=== PATIENT | female | born 1995 | race American Indian/Alaskan Native ===

== ENCOUNTER 2019-03-17 23:49 | Emergency (ER) | payer MEDICAID, OTHER ==
[2019-03-17 23:59] VITALS: BP 114/65
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
== END 2019-03-18 00:20 | disposition left against medical advice (07) ==
LOC: ED 23:49
DX: S00.83XA Contusion of other part of head, initial encounter (principal); S00.03XA Contusion of scalp, initial encounter; S10.93XA Contusion of unspecified part of neck, initial encounter; S00.12XA Contusion of left eyelid and periocular area, initial encounter; G44.319 Acute post-traumatic headache, not intractable; Y04.0XXA Assault by unarmed brawl or fight, initial encounter; Y93.89 Activity, other specified; Y92.89 Other specified places as the place of occurrence of the external cause; Y99.8 Other external cause status
CPT/HCPCS: 99282

== ENCOUNTER 2019-03-20 23:51 | Emergency (ER) | payer MEDICAID, OTHER ==
[2019-03-21] MEDS ORDERED: IBUPROFEN PO ONE (01:46)
[2019-03-21] MEDS ORDERED: FIORICET PO ONE (01:47)
[2019-03-21 03:40] LABS: HCG Qualitative,Urine Negative (Negative)
[2019-03-21 03:41] LABS: Bacteria,Urine 1+ /HPF (Negative); Bilirubin,Urine NEG (Negative); Blood,Urine NEG (Negative); Color,Urine Yellow (Yellow); Mucus,Urine 1+ /HPF; Protein,Urine <15 mg/dL mg/dL (Negative); Urobilinogen,Urine < 2.0 mg/dL (<2.0)
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
[2019-03-21 05:00] VITALS: BP 116/65
== END 2019-03-21 04:56 | disposition home or self-care (01) ==
LOC: ED 23:51
DX: S00.212A Abrasion of left eyelid and periocular area, initial encounter (principal); G44.319 Acute post-traumatic headache, not intractable; Z79.1 Long term (current) use of non-steroidal anti-inflammatories (NSAID); Y04.2XXA Assault by strike against or bumped into by another person, initial encounter; Y93.89 Activity, other specified; Y92.488 Other paved roadways as the place of occurrence of the external cause; Y99.8 Other external cause status
CPT/HCPCS: 70450; 70486; 81001; 81025; 99284

== ENCOUNTER 2019-03-29 23:53 | Emergency (ER) | payer OTHER ==
[2019-03-30 00:30] VITALS: BP 112/25
[2019-03-30 00:37] LABS: Basophils # (Auto) 0.1 K/mm3 (0.0-0.1); Basophils % (Auto) 0.6 % (0.0-1.8); Eosinophils # (Auto) 0.2 K/mm3 (0.0-0.4); Eosinophils % (Auto) 1.5 % (0.0-4.3); Hematocrit 40.7 % (30.3-42.9); Hemoglobin 14.1 gm/dl (10.1-14.3); Lymphocytes % (Auto) 36.2 % (13.4-35.0); Mean Corpuscular HGB Conc 35 % (30-34); Mean Corpuscular Volume 81 fl (79-97); Monocytes % (Auto) 9.2 % (0.0-7.3); Platelet Count 264 K/mm3 (140-440); Red Blood Count 5.03 M/mm3 (3.65-5.03); Red Cell Distribution Width 13.6 % (13.2-15.2)
[2019-03-30 01:00] LABS: Bilirubin,Urine NEG (Negative); Blood,Urine NEG (Negative); Color,Urine Yellow (Yellow); Mucus,Urine 1+ /HPF; Protein,Urine <15 mg/dL mg/dL (Negative); Urobilinogen,Urine < 2.0 mg/dL (<2.0)
[2019-03-30 01:03] LABS: Alanine Aminotransferase 11 units/L (7-56); Albumin 4.1 g/dL (3.9-5); BUN/Creatinine Ratio 24; Blood Urea Nitrogen 19 mg/dL (7-17); Calcium 8.7 mg/dL (8.4-10.2); Hemolysis Index 5
== END 2019-03-30 04:40 | disposition left against medical advice (07) ==
LOC: ED 23:53
DX: R11.2 Nausea with vomiting, unspecified (principal); Z53.21 Procedure and treatment not carried out due to patient leaving prior to being seen by health care provider
CPT/HCPCS: 36415; 80053; 81001; 83690; 84703; 85025

== ENCOUNTER 2022-02-23 15:38 | Emergency (ER) | payer OTHER ==
[2022-02-23 17:16] VITALS: BP 111/69
[2022-02-23 18:22] LABS: Basophils % (Auto) 0.3 % (0.0-1.8); Eosinophils % (Auto) 0.2 % (0.0-4.3); Hematocrit 41.6 % (30.3-42.9); Hemoglobin 14.7 gm/dl (10.1-14.3); Lymphocytes # (Auto) 1.3 K/mm3 (1.2-5.4); Lymphocytes % (Auto) 9.8 % (13.4-35.0); Mean Corpuscular HGB Conc 35 % (30-34); Mean Corpuscular Volume 78 fl (79-97); Monocytes # (Auto) 0.9 K/mm3 (0.0-0.8); Monocytes % (Auto) 6.7 % (0.0-7.3); Platelet Count 285 K/mm3 (140-440); Red Blood Count 5.32 M/mm3 (3.65-5.03)
[2022-02-23 18:44] LABS: Blood Urea Nitrogen 11 mg/dL (7-17); Calcium 10.3 mg/dL (8.4-10.2); Hemolysis Index 1
[2022-02-23 18:55] LABS: BUN/Creatinine Ratio 16
[2022-02-23 23:42] LABS: Bacteria,Urine 1+ /HPF (Negative); Bilirubin,Urine NEG (Negative); Blood,Urine NEG (Negative); Color,Urine Amber (Yellow); Mucus,Urine 3+ /HPF; WBC,Urine < 1.0 /HPF (0.0-6.0)
--- NOTE | 2022-02-24 00:02 | Ultrasound Report ---
US OB <= 14 weeks fetus INDICATION / CLINICAL INFORMATION: Vaginal bleeding pain beta hCG 67,677 COMPARISON: None available. TECHNIQUE: Using a transcutaneous probe, multiple grayscale, color Doppler, and spectral Doppler imag es of the uterus and fetus were captured and stored. FINDINGS: Single intrauterine gestational sac is present with mean crown-rump length of 4.9 mm which correspond s to an estimated gestational age of 6 weeks 2 days. EDC 10/17/2022. The uterus measures 8.5 x 4.4 x 6. 0 cm. The clinical estimated gestational age based on LMP of 01/26/2022 is 4 weeks 0 days. Within the gestational sac, normal yolk sac and pole are present. heart rate is 125 bpm. Left and right ovary are not identified secondary to bowel gas. IMPRESSION: 1. Single living intrauterine gestation with estimated gestational age of 6 weeks 2 days. Signer Name: Mert Agudelo II, MD Signed: 02/23/2022 11:57 PM Workstation Name: [id number]
[2022-02-24] MEDS ORDERED: ONDANSETRON 4 MG ODT TAB PO STA (00:22)
[2022-02-24] MEDS: PYRIDOXINE 50 MG TAB PO SCH ×2 (01:10→01:52)
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
== END 2022-02-24 02:09 | disposition home or self-care (01) ==
LOC: ED 15:38
DX: O20.9 Hemorrhage in early pregnancy, unspecified (principal); O21.9 Vomiting of pregnancy, unspecified; Z3A.01 Less than 8 weeks gestation of pregnancy; Z98.890 Other specified postprocedural states
CPT/HCPCS: 36415; 76801; 80048; 81001; 84702; 85025; 99284; J3490; Q0162

== ENCOUNTER 2022-02-24 14:12 | Emergency (ER) | payer OTHER ==
[2022-02-24 14:35] VITALS: BP 128/78
--- NOTE | 2022-02-24 17:52 | Emergency Department Report ---
ED HPI - General Chief complaint: Abdominal Pain Stated complaint: NAUSEA/VOMITING/CONSTIPATION Source: EMS Mode of arrival: Ambulatory Limitations: No Limitations - History of Present Illness Initial comments: 26-year-old female presents to the ED with complaint of pain all over her body. Patient was previously discharged this a.m. with for nausea and vomiting. Juanita ent has a history of schizo bipolar schizophrenic. She states that she was taking Zyprexa. Unknown dosage amount. Patient states last Zyprexa was taking 1 week ago. Patient states that she returned to the ED because she wanted to know why she her body "was not feeling right". Patient did not have any specific complaints at present time. Patient denies any abdominal pain, vaginal discharge or bleeding, suicidal ideation or homicidal ideation. Patient is alert and oriented x3. No acute distress noted. No ill appearance noted. - Related Data Previous Rx's Medication Instructions Recorded Last Taken Type Cyclobenzaprine [Flexeril] 10 mg PO Q8H PRN #15 tablet 03/21/19 Unknown Rx Ibuprofen [Motrin] 600 mg PO Q8H PRN #20 tablet 03/21/19 Unknown Rx Doxylamine Succinate/Vit B6 1 each PO BID #30 02/24/22 Unknown Rx [Diclegis Dr 10-10 mg Tablet] Doxylamine Succinate/Vit B6 1 each PO BID 15 Days #30 tab 02/24/22 Unknown Rx [Diclegis Dr 10-10 mg Tablet] Allergies Allergy/AdvReac Type Severity Reaction Status Date / Time No Known Allergies Allergy Verified 10/17/15 21:26 ED Review of Systems ROS: Stated complaint: NAUSEA/VOMITING/CONSTIPATION Other details as noted in HPI Constitutional: denies: chills, fever Eyes: denies: eye pain, eye discharge, vision change ENT: denies: ear pain, throat pain Respiratory: denies: cough, shortness of breath, wheezing Cardiovascular: denies: chest pain, palpitations Endocrine: no symptoms reported Gastrointestinal: denies: abdominal pain, nausea, diarrhea Genitourinary: denies: urgency, dysuria, discharge Musculoskeletal: denies: back pain, joint swelling, arthralgia Skin: denies: rash, lesions Neurological: denies: headache, weakness, paresthesias Psychiatric: denies: anxiety, depression Hematological/Lymphatic: denies: easy bleeding, easy bruising ED Past Medical Hx - Past Medical History Previous Medical History?: Yes Hx Hypertension: No Hx Diabetes: No Hx Deep Vein Thrombosis: No Hx Renal Disease: No Hx Sickle Cell Disease: No Hx Seizures: No Hx Asthma: No Hx HIV: No - Surgical History Past Surgical History?: Yes Additional Surgical History: - Social History Smoking Status: Current Every Day Smoker Substance Use Type: None - Medications Home Medications: Home Medications Medication Instructions Recorded Confirmed Last Taken Type Cyclobenzaprine [Flexeril] 10 mg PO Q8H PRN #15 tablet 03/21/19 Unknown Rx Ibuprofen [Motrin] 600 mg PO Q8H PRN #20 tablet 03/21/19 Unknown Rx Doxylamine Succinate/Vit B6 1 each PO BID #30 02/24/22 Unknown Rx [Diclegis Dr 10-10 mg Tablet] Doxylamine Succinate/Vit B6 1 each PO BID 15 Days #30 tab 02/24/22 Unknown Rx [Diclegis Dr 10-10 mg Tablet] ED Physical Exam - General Limitations: No Limitations General appearance: alert, in no apparent distress - Head Head exam: Present: atraumatic, normocephalic - Eye Eye exam: Present: normal appearance - ENT ENT exam: Present: mucous membranes moist - Neck Neck exam: Present: normal inspection - Respiratory Respiratory exam: Present: normal lung sounds bilaterally. Absent: respiratory distress - Cardiovascular Cardiovascular Exam: Present: regular rate, normal rhythm. Absent: systolic murmur, diastolic murmur, rubs, gallop - GI/Abdominal GI/Abdominal exam: Present: soft, normal bowel sounds - Extremities Exam Extremities exam: Present: normal inspection - Back Exam Back exam: Present: normal inspection - Neurological Exam Neurological exam: Present: alert, oriented X3 - Psychiatric Psychiatric exam: Present: normal affect, normal mood - Skin Skin exam: Present: warm, dry, intact, normal color. Absent: rash ED Course Vital Signs 02/24/22 14:24 Temperature 98.9 F Pulse Rate 90 Respiratory 20 Rate Blood Pressure 128/78 O2 Sat by Pulse 100 Oximetry ED Medical Decision Making - Medical Decision Making 26-year-old female presents to the ED with complaint of pain all over her body. Patient was previously discharged this a.m. with for nausea and vomiting. Patient has a history of schizo bipolar schizophrenic. She states that she was taking Zyprexa. Unknown dosage amount. Patient states last Zyprexa was taking 1 week ago. Patient states that she returned to the ED because she wanted to know why she her body "was not feeling right". Patient did not have any specific complaints at present time. Patient denies any abdominal pain, vaginal discharge or bleeding, suicidal ideation or homicidal ideation. Patient is alert and oriented x3. No acute distress noted. No ill appearance noted. Physical examination is unremarkable. Discussed with patient all lab results from earlier visit in detail with patient. Labs were drawn within 24 hours of the visit. Patient states that she had lost her prescription for the nausea. Discussed with patient to only take Tylenol for pain. Patient had ultrasound showed viable 6 days and 3 weeks. Rechecked the patient is resting quietly quietly and comfortable and feeling better. I discussed the results of diagnostic study, my clinical impression and the plan for further treatment with the patient. Patient agrees with plan and discharge at this present time. All question addressed. I have given the patient instruction regarding a diagnosis ,expectation ,follow- up and return precaution. I explained to the patient that emergent condition may arise and to return to the ED for new worsen and any new persisting condition. I have explained the importance of following up with the primary care physician or referral physician listed below has instructed. The patient verbalized understanding of discharge instruction. Critical care attestation.: If time is entered above; I have spent that time in minutes in the direct care of this critically ill patient, excluding procedure time. ED Disposition Clinical Impression: Nausea and vomiting, Hyperemesis Qualifiers: Weeks of gestation: less than 8 weeks Qualified Code(s): Z3A.01 - Less than 8 weeks gestation of Disposition: 01 HOME / SELF CARE / HOMELESS Is pt being admited?: No Does the pt Need Aspirin: No Condition: Stable Instructions: Hyperemesis Gravidarum, Abdominal Pain (ED) Additional Instructions: Take medication as prescribed Prescriptions: Doxylamine Succinate/Vit B6 [Saniya Azul 10-10 mg Tablet] 1 each PO BID 15 Days #30 tab Referrals: [facility] [Provider Group] - 3-5 Days Forms: Work/School Release Form(ED) Time of Disposition: 17:52
== END 2022-02-24 18:23 | disposition home or self-care (01) ==
LOC: ED 14:12
DX: O21.9 Vomiting of pregnancy, unspecified (principal); F17.200 Nicotine dependence, unspecified, uncomplicated; Z79.899 Other long term (current) drug therapy
CPT/HCPCS: 99283

== ENCOUNTER 2022-02-24 20:29 | Emergency (ER) | payer OTHER | END 2022-02-24 20:35 | disposition left against medical advice (07) | LOC: ED 20:29 | DX: O21.8 Other vomiting complicating pregnancy (principal); Z3A.01 Less than 8 weeks gestation of pregnancy; Z53.21 Procedure and treatment not carried out due to patient leaving prior to being seen by health care provider ==

== ENCOUNTER 2022-02-25 16:02 | Emergency (ER) | payer OTHER ==
[2022-02-25 16:07] VITALS: BP 132/70
== END 2022-02-25 22:10 | disposition left against medical advice (07) ==
LOC: ED 16:02
DX: R11.10 Vomiting, unspecified (principal); Z53.21 Procedure and treatment not carried out due to patient leaving prior to being seen by health care provider

== ENCOUNTER 2022-02-27 07:43 | Inpatient (IN) | payer OTHER ==
[2022-02-27] MEDS ORDERED: ONDANSETRON 4 MG/2 ML INJ IV ONE (08:02)
[2022-02-27] MEDS ORDERED: SODIUM CHLORIDE 0.9% 1000 ML 1,000 ML IV ONE ×2 (08:02→12:54)
[2022-02-27] MEDS ORDERED: MORPHINE 2 MG/1 ML INJ IM ONE (08:33)
[2022-02-27 09:16] LABS: BUN/Creatinine Ratio 25; Blood Urea Nitrogen 28 mg/dL (7-17); Hemolysis Index 15
[2022-02-27] MEDS ORDERED: POTASSIUM CHLORIDE ER 20 MEQ TAB PO ONE (09:18)
[2022-02-27 09:25] LABS: Hematocrit 43.2 % (30.3-42.9); Mean Corpuscular HGB Conc 35 % (30-34); Mean Corpuscular Volume 78 fl (79-97); Platelet Count 304 K/mm3 (140-440); Red Blood Count 5.54 M/mm3 (3.65-5.03); Red Cell Distribution Width 13.8 % (13.2-15.2)
[2022-02-27] MEDS ORDERED: POTASSIUM CHLORIDE 10 MEQ 10 MEQ/100 ML BAG IV SCH (10:00)
[2022-02-27 10:06] LABS: Basophils % (Manual) 0 % (0.0-1.8); Eosinophils % (Manual) 0 % (0.0-4.3); Platelet Estimate Consistent w Auto; Total Cells Counted 100
--- NOTE | 2022-02-27 10:31 | Ultrasound Report ---
US OB <= 14 weeks fetus INDICATION / CLINICAL INFORMATION: Abdominal Pain. TECHNIQUE: Transabdominal. COMPARISON: None available. FINDINGS: UTERUS: Appears within normal limits. GESTATIONAL SAC: Well-defined oval shape and intrauterine in location. YOLK SAC: No significant abnormality. EMBRYO/FETUS: - Geddes-Rump Length = 13.6 mm. - Heart Rate, beats per minute (if present) = 134 beats per minute ADNEXA: No significant abnormality. FREE FLUID: None. ADDITIONAL FINDINGS: Small crescent-shaped subchorionic hemorrhage.. IMPRESSION: 1. Single, living intrauterine with estimated sonographic age of 7 weeks 5 days. 2. Small subchorionic hemorrhage. Signer Name: Luis Enrique Forde MD Signed: 02/27/2022 10:26 AM Workstation Name: [id number]
[2022-02-27 12:32] LABS: Bilirubin,Urine NEG (Negative); Blood,Urine LG (Negative); Color,Urine Yellow (Yellow); Urobilinogen,Urine < 2.0 mg/dL (<2.0)
[2022-02-27 12:33] LABS: RBC,Urine < 1.0 /HPF (0.0-6.0); WBC,Urine < 1.0 /HPF (0.0-6.0)
[2022-02-27 12:34] LABS: HCG Qualitative,Urine Positive (Negative)
[2022-02-27 12:35] LABS: Bacteria,Urine 1+ /HPF (Negative); Hyaline Casts,Urine 3 /LPF; Mucus,Urine FEW /HPF
--- NOTE | 2022-02-27 12:52 | Emergency Department Report ---
ED General Adult HPI - General Chief complaint: Abdominal Pain Stated complaint: ABD PAIN/ 6 WKS PREG Time Seen by Provider: 02/27/22 08:01 Source: patient, EMS Mode of arrival: Stretcher Limitations: No Limitations - History of Present Illness Initial comments: ADBOMINAL PAIN, VAGINAL BLEEDING X'S 4-5 DAYS -: Gradual, days(s) Severity scale (0 -10): 6 Consistency: intermittent Improves with: none Treatments Prior to Arrival: none - Related Data Previous Rx's Medication Instructions Recorded Last Taken Type Cyclobenzaprine [Flexeril] 10 mg PO Q8H PRN #15 tablet 03/21/19 Unknown Rx Ibuprofen [Motrin] 600 mg PO Q8H PRN #20 tablet 03/21/19 Unknown Rx Doxylamine Succinate/Vit B6 1 each PO BID #30 02/24/22 Unknown Rx [Diclegis Dr 10-10 mg Tablet] Doxylamine Succinate/Vit B6 1 each PO BID 15 Days #30 tab 02/24/22 Unknown Rx [Diclegis Dr 10-10 mg Tablet] Allergies Allergy/AdvReac Type Severity Reaction Status Date / Time No Known Allergies Allergy Verified 02/27/22 07:53 ED Review of Systems ROS: Stated complaint: ABD PAIN/ 6 WKS PREG Other details as noted in HPI Constitutional: denies: chills, fever Eyes: denies: eye pain, eye discharge, vision change ENT: denies: ear pain, throat pain Respiratory: denies: cough, shortness of breath, wheezing Cardiovascular: denies: chest pain, palpitations Endocrine: no symptoms reported Gastrointestinal: denies: abdominal pain, nausea, diarrhea Genitourinary: denies: urgency, dysuria, discharge Musculoskeletal: denies: back pain, joint swelling, arthralgia Skin: denies: rash, lesions Neurological: denies: headache, weakness, paresthesias Psychiatric: denies: anxiety, depression Hematological/Lymphatic: denies: easy bleeding, easy bruising ED Past Medical Hx - Past Medical History Hx Hypertension: No Hx Diabetes: No Hx Deep Vein Thrombosis: No Hx Renal Disease: No Hx Sickle Cell Disease: No Hx Seizures: No Hx Asthma: No Hx HIV: No - Surgical History Additional Surgical History: - Social History Smoking Status: Current Every Day Smoker Substance Use Type: None - Medications Home Medications: Home Medications Medication Instructions Recorded Confirmed Last Taken Type Cyclobenzaprine [Flexeril] 10 mg PO Q8H PRN #15 tablet 03/21/19 Unknown Rx Ibuprofen [Motrin] 600 mg PO Q8H PRN #20 tablet 03/21/19 Unknown Rx Doxylamine Succinate/Vit B6 1 each PO BID #30 02/24/22 Unknown Rx [Diclegis Dr 10-10 mg Tablet] Doxylamine Succinate/Vit B6 1 each PO BID 15 Days #30 tab 02/24/22 Unknown Rx [Diclegis Dr 10-10 mg Tablet] ED Physical Exam - General Limitations: No Limitations General appearance: alert, in distress, other (actively vomiting) - Head Head exam: Present: atraumatic, normocephalic - Eye Eye exam: Present: normal appearance - ENT ENT exam: Present: mucous membranes moist - Neck Neck exam: Present: normal inspection - Respiratory Respiratory exam: Present: normal lung sounds bilaterally. Absent: respiratory distress - Cardiovascular Cardiovascular Exam: Present: regular rate, tachycardia. Absent: systolic murmur, diastolic murmur, rubs, gallop - GI/Abdominal GI/Abdominal exam: Present: soft, normal bowel sounds - Extremities Exam Extremities exam: Present: normal inspection - Back Exam Back exam: Present: normal inspection - Neurological Exam Neurological exam: Present: alert, oriented X3 - Psychiatric Psychiatric exam: Present: normal affect, normal mood - Skin Skin exam: Present: warm, dry, intact, normal color. Absent: rash ED Course Vital Signs 02/27/22 02/27/22 07:49 09:57 Temperature 98.4 F 98.9 F Pulse Rate 130 H 92 H Respiratory 16 20 Rate Blood Pressure 150/90 135/82 [Left] O2 Sat by Pulse 97 100 Oximetry ED Medical Decision Making - Lab Data Result diagrams: 02/27/22 08:34 02/27/22 08:34 - Radiology Data Radiology results: report reviewed, image reviewed - Medical Decision Making work up showed hyponatremia and hypokalemia , ketones noted no acidosis or gap , fluids given nausea meds spoke with dr Herrera, will admit and consult medicine Critical care attestation.: If time is entered above; I have spent that time in minutes in the direct care of this critically ill patient, excluding procedure time. ED Disposition Clinical Impression: Hyperemesis, Hyponatremia, Hypokalemia, Hyperemesis gravidarum Disposition: ADMITTED INPATIENT Is pt being admited?: Yes Does the pt Need Aspirin: No Condition: Fair Instructions: Abdominal Pain (ED) Referrals: [facility],MD [Primary Care Provider] - 3-5 Days
[2022-02-27] MEDS ORDERED: THIAMINE 100 MG, FOLIC ACID 1 MG, MULTIPLE VITAMIN INJ, ADULT 10 ML in SODIUM CHLORIDE ... IV ONE (13:00)
--- NOTE | 2022-02-27 15:57 | History and Physical Report ---
History of Present Illness Date of examination: 02/27/22 Date of admission: 02/27/22 Chief complaint: nausea and vomiting in early . History of present illness: at 7+ weeks with n/v and electrolyte imbalance. Past History Past Medical History: lung disease, other (said she was told she has chronic bronchitis since childhood[not on any meds]) Past Surgical History: section - Obstetrical History : 1 Medications and Allergies Allergies Allergy/AdvReac Type Severity Reaction Status Date / Time No Known Allergies Allergy Verified 02/27/22 07:53 Home Medications Medication Instructions Recorded Confirmed Last Taken Type Cyclobenzaprine [Flexeril] 10 mg PO Q8H PRN #15 tablet 03/21/19 Unknown Rx Ibuprofen [Motrin] 600 mg PO Q8H PRN #20 tablet 03/21/19 Unknown Rx Doxylamine Succinate/Vit B6 1 each PO BID #30 02/24/22 Unknown Rx [Diclegis Dr 10-10 mg Tablet] Doxylamine Succinate/Vit B6 1 each PO BID 15 Days #30 tab 02/24/22 Unknown Rx [Diclegis Dr 10-10 mg Tablet] Active Meds: Active Medications Thiamine HCl 100 mg/ Folic Acid 1 mg/ Multivitamins/Minerals 10 ml/ Sodium Chloride 1,011.2 mls @ 250 mls/hr IV ONCE ONE Stop: 02/27/22 17:02 Last Admin: 02/27/22 14:55 Dose: 250 mls/hr Review of Systems All systems: negative - Vital Signs Vital signs: Vital Signs Temp Pulse Resp BP Pulse Ox 98.4 F 130 H 16 150/90 97 02/27/22 07:49 02/27/22 07:49 02/27/22 07:49 02/27/22 07:49 02/27/22 07:49 Temp Pulse Resp BP Pulse Ox 98.9 F 90 20 120/88 99 02/27/22 15:35 02/27/22 15:35 02/27/22 15:35 02/27/22 15:35 02/27/22 15:35 - Physical Exam Breasts: Positive: deferred Lungs: Positive: Normal air movement Abdomen: Positive: normal appearance, soft Results Result Diagrams: 02/27/22 08:34 02/27/22 08:34 Abnormal lab results 02/27/22 02/27/2202/27/22 Range/Units 08:34 08:34 08:34 WBC 25.8 H (4.5-11.0) K/mm3 RBC 5.54 H (3.65-5.03) M/mm3 Hgb 15.0 H (10.1-14.3) gm/dl Hct 43.2 H (30.3-42.9) % MCV 78 L (79-97) fl MCH 27 L (28-32) pg MCHC 35 H (30-34) % Seg Neuts % (Manual) 89.0 H (40.0-70.0) % Lymphocytes % (Manual) 7.0 L (13.4-35.0) % Seg Neutrophils # Man 23.0 H (1.8-7.7) K/mm3 Monocytes # (Manual) 1.0 H (0.0-0.8) K/mm3 Sodium 131 L (137-145) mmol/L Potassium 2.6 L* D (3.6-5.0) mmol/L Chloride 81.7 L (98-107) mmol/L BUN 28 H (7-17) mg/dL Glucose 114 H (65-100) mg/dL Lactic Acid (0.7-2.0) mmol/L Lipase 8 L (13-60) units/L HCG, Quant 07269 H (0-4) mIU/mL Urine HCG, Qual (Negative) 02/27/22 02/27/22 02/27/22 Range/Units 10:52 12:10 12:30 WBC (4.5-11.0) K/mm3 RBC (3.65-5.03) M/mm3 Hgb (10.1-14.3) gm/dl Hct (30.3-42.9) % MCV (79-97) fl MCH (28-32) pg MCHC (30-34) % Seg Neuts % (Manual) (40.0-70.0) % Lymphocytes % (Manual) (13.4-35.0) % Seg Neutrophils # Man (1.8-7.7) K/mm3 Monocytes # (Manual) (0.0-0.8) K/mm3 Sodium (137-145) mmol/L Potassium (3.6-5.0) mmol/L Chloride (98-107) mmol/L BUN (7-17) mg/dL Glucose (65-100) mg/dL Lactic Acid 2.50 H* 2.10 H* (0.7-2.0) mmol/L Lipase (13-60) units/L HCG, Quant (0-4) mIU/mL Urine HCG, Qual Positive A (Negative) 02/27/22 Range/Units 13:37 WBC (4.5-11.0) K/mm3 RBC (3.65-5.03) M/mm3 Hgb (10.1-14.3) gm/dl Hct (30.3-42.9) % MCV (79-97) fl MCH (28-32) pg MCHC (30-34) % Seg Neuts % (Manual) (40.0-70.0) % Lymphocytes % (Manual) (13.4-35.0) % Seg Neutrophils # Man (1.8-7.7) K/mm3 Monocytes # (Manual) (0.0-0.8) K/mm3 Sodium (137-145) mmol/L Potassium (3.6-5.0) mmol/L Chloride (98-107) mmol/L BUN (7-17) mg/dL Glucose (65-100) mg/dL Lactic Acid 2.20 H* (0.7-2.0) mmol/L Lipase (13-60) units/L HCG, Quant (0-4) mIU/mL Urine HCG, Qual (Negative) All other labs normal. Assessment and Plan - Patient Problems (1) Electrolyte imbalance Current Visit: Yes Status: Acute Plan to address problem: Hospitalist to manage. Dr. Morales consulted. (2) Hyperemesis gravidarum Current Visit: Yes Status: Acute Plan to address problem: Admit for management.
[2022-02-27] MEDS ORDERED: SODIUM CHLORIDE 0.9% 1000 ML 1,000 ML IV SCH (16:00)
[2022-02-27] MEDS ORDERED: POTASSIUM CHLORIDE 10 MEQ 10 MEQ/100 ML BAG IV ONE (16:47)
[2022-02-27] MEDS ORDERED: METOCLOPRAMIDE 10 MG/2 ML INJ IV PRN (19:24)
[2022-02-27] MEDS ORDERED: ACETAMINOPHEN 325 MG TAB PO PRN (19:24)
[2022-02-27] MEDS ORDERED: PROMETHAZINE 25 MG RECT SUPP PR PRN (19:59)
[2022-02-27] MEDS ORDERED: D5W/0.9% NACL 1,000 ML IV SCH (20:00)
[2022-02-27] MEDS: ONDANSETRON 4 MG/2 ML INJ IV PRN (21:40)
[2022-02-27] MEDS: POTASSIUM CHLORIDE 10 MEQ 10 MEQ/100 ML BAG IV SCH (22:36)
[2022-02-28] MEDS ORDERED: ZOLPIDEM 5 MG TAB PO ONE (00:33)
[2022-02-28] MEDS ORDERED: SODIUM CHLORIDE 0.9% 1000 ML 1,000 ML IV SCH (00:45)
[2022-02-28] MEDS: FAMOTIDINE 20 MG/2 ML INJ IV SCH ×3 (00:45→22:04)
[2022-02-28] MEDS: HEPARIN 5,000 UNIT/1 ML VIAL SUB-Q SCH ×2 (00:57→13:22)
[2022-02-28] MEDS: POTASSIUM CHLORIDE 10 MEQ 10 MEQ/100 ML BAG IV SCH ×3 (01:18→03:25)
[2022-02-28 04:36] LABS: Hematocrit 37.3 % (30.3-42.9); Hemoglobin 12.9 gm/dl (10.1-14.3); Mean Corpuscular HGB Conc 35 % (30-34); Mean Corpuscular Volume 79 fl (79-97); Platelet Count 249 K/mm3 (140-440); Red Blood Count 4.72 M/mm3 (3.65-5.03); Red Cell Distribution Width 13.9 % (13.2-15.2)
[2022-02-28] MEDS: MORPHINE 2 MG/1 ML INJ IV PRN ×3 (04:55→11:00)
[2022-02-28 04:56] LABS: Alanine Aminotransferase 23 units/L (7-56); Albumin 3.9 g/dL (3.9-5); Blood Urea Nitrogen 10 mg/dL (7-17); Calcium 8.8 mg/dL (8.4-10.2); Hemolysis Index 6
[2022-02-28 05:02] LABS: BUN/Creatinine Ratio 17
[2022-02-28] MEDS: ONDANSETRON 4 MG/2 ML INJ IV PRN ×2 (05:25→10:15)
[2022-02-28 05:36] LABS: Basophils % (Manual) 0 % (0.0-1.8); Platelet Estimate Consistent w Auto; RBC Morphology Normal; Total Cells Counted 100
--- NOTE | 2022-02-28 07:30 | Consultation ---
History of Present Illness - Reason for Consult Consult date: 02/27/22 Medical management Requesting physician: LUCIUS MAYER - History of Present Illness 26-year-old -[place]inames[place] female with no significant past medical history, 6 weeks of comes in for 1 week of recurrent vomiting. Patient apparently came to ER couple days ago and was prescribed antiemetics. Patient did not fill the prescription. Patient continues to be vomiting. Vomiting abo ut 6 6-8 times a day. Nausea present. No diarrhea. No fever or chills. Past History Past Medical History: No medical history Past Surgical History: No surgical history Social history: lives with family, full code Family history: no significant family history Medications and Allergies Allergies Allergy/AdvReac Type Severity Reaction Status Date / Time No Known Allergies Allergy Verified 02/27/22 07:53 Home Medications Medication Instructions Recorded Confirmed Last Taken Type Cyclobenzaprine [Flexeril] 10 mg PO Q8H PRN #15 tablet 03/21/19 Unknown Rx Ibuprofen [Motrin] 600 mg PO Q8H PRN #20 tablet 03/21/19 Unknown Rx Doxylamine Succinate/Vit B6 1 each PO BID #30 02/24/22 Unknown Rx [Diclegis Dr 10-10 mg Tablet] Doxylamine Succinate/Vit B6 1 each PO BID 15 Days #30 tab 02/24/22 Unknown Rx [Diclegis Dr 10-10 mg Tablet] Active Meds: Active Medications Acetaminophen (Acetaminophen 325 Mg Tab) 650 mg PO Q4H PRN PRN Reason: Pain MILD(1-3)/Fever >100.5/OHARA Famotidine (Famotidine 20 Mg/2 Ml Inj) 20 mg IV BID [facility] Last Admin: 02/28/22 00:45 Dose: 20 mg Heparin Sodium (Porcine) (Heparin 5,000 Unit/1 Ml Vial) 5,000 unit SUB-Q Q12HR [facility] Last Admin: 02/28/22 00:57 Dose: 5,000 unit Sodium Chloride (Nacl 0.9% 1000 Ml) 1,000 mls @ 125 mls/hr IV DIRECT [facility] Metoclopramide HCl (Metoclopramide 10 Mg/2 Ml Inj) 10 mg IV Q6H PRN PRN Reason: Nausea And Vomiting Morphine Sulfate (Morphine 2 Mg/1 Ml Inj) 2 mg IV Q4H PRN PRN Reason: Pain, Moderate (4-6) Last Admin: 02/28/22 04:55 Dose: 2 mg Multivitamins/Iron/Calcium ( Mpc29-Ou Fumarate-Folic Acid Vit Tab) 1 each PO QDAY ROCHELLE Ondansetron HCl (Ondansetron 4 Mg/2 Ml Inj) 4 mg IV Q3H PRN PRN Reason: Nausea And Vomiting Last Admin: 02/28/22 05:25 Dose: 4 mg Promethazine HCl (Promethazine 25 Mg Rect Supp) 25 mg DE Q6H PRN PRN Reason: N/V IF NPO AND NO IV ACCESS Last Admin: 02/28/22 00:47 Dose: 25 mg Sodium Chloride (Sodium Chloride 0.9% 10 Ml Flush Syringe) 10 ml IV BID ROCHELLE Sodium Chloride (Sodium Chloride 0.9% 10 Ml Flush Syringe) 10 ml IV PRN PRN PRN Reason: LINE FLUSH Review of Systems All systems: negative Gastrointestinal: nausea, vomiting Exam - Constitutional Vitals: Temp Pulse Resp BP Pulse Ox 99.0 F 95 H 20 109/84 100 02/28/22 04:35 02/28/22 04:35 02/28/22 04:55 02/28/22 04:35 02/28/22 04:35 General appearance: Present: mild distress, well-nourished - EENT Eyes: Present: PERRL ENT: hearing intact, clear oral mucosa - Neck Neck: Present: supple, normal ROM - Respiratory Respiratory effort: normal Respiratory: bilateral: CTA - Cardiovascular Heart rate: 78 Rhythm: regular Heart Sounds: Present: S1 & S2. Absent: rub, click - Extremities Extremities: pulses symmetrical, No edema Peripheral Pulses: within normal limits - Abdominal General gastrointestinal: Present: soft, non-tender, non-distended, normal bowel sounds Female genitourinary: Present: normal - Integumentary Integumentary: Present: clear, warm, dry - Musculoskeletal Musculoskeletal: gait normal, strength equal bilaterally - Psychiatric Psychiatric: appropriate mood/affect, intact judgment & insight - Neurologic Neurologic: CNII-XII intact, moves all extremities Results - Labs CBC & Chem 7: 02/28/22 04:22 02/28/22 04:22 Labs: Abnormal lab results 02/27/22 02/27/22 02/27/22 Range/Units 08:34 08:34 08:34 WBC 25.8 H (4.5-11.0) K/mm3 RBC 5.54 H (3.65-5.03) M/mm3 Hgb 15.0 H (10.1-14.3) gm/dl Hct 43.2 H (30.3-42.9) % MCV 78 L (79-97) fl MCH 27 L (28-32) pg MCHC 35 H (30-34) % Seg Neuts % (Manual) 89.0 H (40.0-70.0) % Lymphocytes % (Manual) 7.0 L (13.4-35.0) % Seg Neutrophils # Man 23.0 H (1.8-7.7) K/mm3 Monocytes # (Manual) 1.0 H (0.0-0.8) K/mm3 Sodium 131 L (137-145) mmol/L Potassium 2.6 L* D (3.6-5.0) mmol/L Chloride 81.7 L (98-107) mmol/L BUN 28 H (7-17) mg/dL Glucose 114 H (65-100) mg/dL Lactic Acid (0.7-2.0) mmol/L Lipase 8 L (13-60) units/L HCG, Quant 02273 H (0-4) mIU/mL Urine HCG, Qual (Negative) 02/27/22 02/27/22 02/27/22 Range/Units 10:52 12:10 12:30 WBC (4.5-11.0) K/mm3 RBC (3.65-5.03) M/mm3 Hgb (10.1-14.3) gm/dl Hct (30.3-42.9) % MCV (79-97) fl MCH (28-32) pg MCHC (30-34) % Seg Neuts % (Manual) (40.0-70.0) % Lymphocytes % (Manual) (13.4-35.0) % Seg Neutrophils # Man (1.8-7.7) K/mm3 Monocytes # (Manual) (0.0-0.8) K/mm3 Sodium (137-145) mmol/L Potassium (3.6-5.0) mmol/L Chloride (98-107) mmol/L BUN (7-17) mg/dL Glucose (65-100) mg/dL Lactic Acid 2.50 H* 2.10 H* (0.7-2.0) mmol/L Lipase (13-60) units/L HCG, Quant (0-4) mIU/mL Urine HCG, Qual Positive A (Negative) 02/27/22 02/28/22 02/28/22 Range/Units 13:37 04:22 04:22 WBC 22.0 H (4.5-11.0) K/mm3 RBC (3.65-5.03) M/mm3 Hgb (10.1-14.3) gm/dl Hct (30.3-42.9) % MCV (79-97) fl MCH 27 L (28-32) pg MCHC 35 H (30-34) % Seg Neuts % (Manual) 75.0 H (40.0-70.0) % Lymphocytes % (Manual) (13.4-35.0) % Seg Neutrophils # Man 16.5 H (1.8-7.7) K/mm3 Monocytes # (Manual) 0.9 H (0.0-0.8) K/mm3 Sodium 131 L (137-145) mmol/L Potassium (3.6-5.0) mmol/L Chloride 94.7 L (98-107) mmol/L BUN (7-17) mg/dL Glucose (65-100) mg/dL Lactic Acid 2.20 H* (0.7-2.0) mmol/L Lipase (13-60) units/L HCG, Quant (0-4) mIU/mL Urine HCG, Qual (Negative) - General Chief complaint: Abdominal Pain Stated complaint: ABD PAIN/ 6 WKS PREG Time Seen by Provider: 02/27/22 08:01 Source: patient, EMS Mode of arrival: Stretcher Limitations: No Limitations - History of Present Illness Initial comments: ADBOMINAL PAIN, VAGINAL BLEEDING X'S 4-5 DAYS -: Gradual, days(s) Severity scale (0 -10): 6 Consistency: intermittent Improves with: none Treatments Prior to Arrival: none - Related Data Previous Rx's Medication Instructions Recorded Last Taken Type Cyclobenzaprine [Flexeril] 10 mg PO Q8H PRN #15 tablet 03/21/19 Unknown Rx Ibuprofen [Motrin] 600 mg PO Q8H PRN #20 tablet 03/21/19 Unknown Rx Doxylamine Succinate/Vit B6 1 each PO BID #30 02/24/22 Unknown Rx [Diclegis Dr 10-10 mg Tablet] Doxylamine Succinate/Vit B6 1 each PO BID 15 Days #30 tab 02/24/22 Unknown Rx [Diclegis Dr 10-10 mg Tablet] Allergies Allergy/AdvReac Type Severity Reaction Status Date / Time No Known Allergies Allergy Verified 02/27/22 07:53 ED Review of Systems ROS: Stated complaint: ABD PAIN/ 6 WKS PREG Other details as noted in HPI Constitutional: denies: chills, fever Eyes: denies: eye pain, eye discharge, vision change ENT: denies: ear pain, throat pain Respiratory: denies: cough, shortness of breath, wheezing Cardiovascular: denies: chest pain, palpitations Endocrine: no symptoms reported Gastrointestinal: denies: abdominal pain, nausea, diarrhea Genitourinary: denies: urgency, dysuria, discharge Musculoskeletal: denies: back pain, joint swelling, arthralgia Skin: denies: rash, lesions Neurological: denies: headache, weakness, paresthesias Psychiatric: denies: anxiety, depression Hematological/Lymphatic: denies: easy bleeding, easy bruising ED Past Medical Hx - Past Medical History Hx Hypertension: No Hx Diabetes: No Hx Deep Vein Thrombosis: No Hx Renal Disease: No Hx Sickle Cell Disease: No Hx Seizures: No Hx Asthma: No Hx HIV: No - Surgical History Additional Surgical History: - Social History Smoking Status: Current Every Day Smoker Substance Use Type: None - Medications Home Medications: Home Medications Medication Instructions Recorded Confirmed Last Taken Type Cyclobenzaprine [Flexeril] 10 mg PO Q8H PRN #15 tablet 03/21/19 Unknown Rx Ibuprofen [Motrin] 600 mg PO Q8H PRN #20 tablet 03/21/19 Unknown Rx Doxylamine Succinate/Vit B6 1 each PO BID #30 02/24/22 Unknown Rx [Diclegis Dr 10-10 mg Tablet] Doxylamine Succinate/Vit B6 1 each PO BID 15 Days #30 tab 02/24/22 Unknown Rx [Diclegis Dr 10-10 mg Tablet] Assessment and Plan - Patient Problems (1) Hyperemesis gravidarum Current Visit: Yes Status: Acute Plan to address problem: Started in was diagnosed seventh week of May last for 5 weeks Patient did not take antiemetics as outpatient Patient initiated on IV fluids, IV Zofran and IV Reglan. Patient to be discharged on Zofran 4 mg ODT every 4 hours as needed Emphasized to the patient to fill up the prescription. Gatorade As tolerated. (2) Hypokalemia Current Visit: Yes Status: Acute Plan to address problem: IV potassium started Recheck potassium levels Patient is taking Gatorade/Powerade on a regular basis whenever she is vomiting Potassium tablets if necessary (3) Leukocytosis Current Visit: Yes Status: Acute Qualifiers: Leukocytosis type: unspecified Qualified Code(s): D72.829 - Elevated white blood cell count, unspecified Plan to address problem: Probably demargination No focus of infection identified Urine is clear IV antibiotics if necessary (4) Volume depletion Current Visit: Yes Status: Acute Plan to address problem: IV fluids for now (5) DVT prophylaxis Current Visit: Yes Status: Acute Plan to address problem: On anticoagulation GI prophylaxis (6) Advance care planning Current Visit: Yes Status: Acute Plan to address problem: Disease education conducted, care plan discussed, diagnosis discussed, prognosis discussed. Patient is full code. Patient acknowledges understanding and agreement with care plan. +30 minutes.
[2022-02-28] MEDS ORDERED: PRENATAL VIT27-FE FUMARATE-FOLIC ACID VIT TAB PO SCH (10:00)
--- NOTE | 2022-02-28 17:17 | Progress Note ---
Assessment and Plan - Patient Problems (1) Electrolyte imbalance Current Visit: Yes Status: Resolved (2) Hyperemesis gravidarum Current Visit: Yes Status: Acute Plan to address problem: IV hydration to continue. Subjective - Subjective Date of service: 02/28/22 Principal diagnosis: Hyperemesis gravidarum Interval history: at 7+ weeks with n/v and electrolyte imbalance. 02/28/22 Electrolytes normal. Patient reports: no new complaints, no loss of fluid, no vaginal bleeding, no contractions (Feeling better. Not able to keep food down still.) Objective - Vital Signs Vital Signs: Vital Signs - 12hr 02/28/22 02/28/22 02/28/22 07:32 08:00 13:06 Temperature 98.8 F 98.1 F Pulse Rate 82 74 Respiratory 18 13 18 Rate Blood Pressure 110/68 117/71 O2 Sat by Pulse 99 99 100 Oximetry - Exam Lungs: Normal air movement Abdomen: Present: normal appearance, soft - Labs Labs: Abnormal Labs 02/27/22 02/27/22 02/27/22 08:34 08:34 08:34 WBC 25.8 H RBC 5.54 H Hgb 15.0 H Hct 43.2 H MCV 78 L MCH 27 L MCHC 35 H Seg Neuts % (Manual) 89.0 H Lymphocytes % (Manual) 7.0 L Seg Neutrophils # Man 23.0 H Monocytes # (Manual) 1.0 H Sodium 131 L Potassium 2.6 L* D Chloride 81.7 L BUN 28 H Glucose 114 H Lactic Acid Lipase 8 L HCG, Quant 44750 H Urine HCG, Qual 02/27/22 02/27/22 02/27/22 10:52 12:10 12:30 WBC RBC Hgb Hct MCV MCH MCHC Seg Neuts % (Manual) Lymphocytes % (Manual) Seg Neutrophils # Man Monocytes # (Manual) Sodium Potassium Chloride BUN Glucose Lactic Acid 2.50 H* 2.10 H* Lipase HCG, Quant Urine HCG, Qual Positive A 02/27/22 02/28/22 02/28/22 13:37 04:22 04:22 WBC 22.0 H RBC Hgb Hct MCV MCH 27 L MCHC 35 H Seg Neuts % (Manual) 75.0 H Lymphocytes % (Manual) Seg Neutrophils # Man 16.5 H Monocytes # (Manual) 0.9 H Sodium 131 L Potassium Chloride 94.7 L BUN Glucose Lactic Acid 2.20 H* Lipase HCG, Quant Urine HCG, Qual Laboratory Results - last 24 hr 02/28/22 02/28/22 02/28/22 04:22 04:22 12:37 WBC 22.0 H RBC 4.72 Hgb 12.9 Hct 37.3 MCV 79 MCH 27 L MCHC 35 H RDW 13.9 Plt Count 249 Add Manual Diff Complete Total Counted 100 Seg Neuts % (Manual) 75.0 H Band Neutrophils % 0 Lymphocytes % (Manual) 20.0 Reactive Lymphs % (Man) 0 Monocytes % (Manual) 4.0 Eosinophils % (Manual) 1.0 Basophils % (Manual) 0 Metamyelocytes % 0 Myelocytes % 0 Promyelocytes % 0 Blast Cells % 0 Nucleated RBC % Not Reportable Seg Neutrophils # Man 16.5 H Band Neutrophils # 0.0 Lymphocytes # (Manual) 4.4 Abs React Lymphs (Man) 0.0 Monocytes # (Manual) 0.9 H Eosinophils # (Manual) 0.2 Basophils # (Manual) 0.0 Metamyelocytes # 0.0 Myelocytes # 0.0 Promyelocytes # 0.0 Blast Cells # 0.0 WBC Morphology Not Reportable Hypersegmented Neuts Not Reportable Hyposegmented Neuts Not Reportable Hypogranular Neuts Not Reportable Smudge Cells Not Reportable Toxic Granulation Not Reportable Toxic Vacuolation Not Reportable Dohle Bodies Not Reportable Pelger-Huet Anomaly Not Reportable Charisse Rods Not Reportable Platelet Estimate Consistent w auto Clumped Platelets Not Reportable Plt Clumps, EDTA Not Reportable Large Platelets Not Reportable Giant Platelets Not Reportable Platelet Satelliting Not Reportable Plt Morphology Comment Not Reportable RBC Morphology Normal Dimorphic RBCs Not Reportable Polychromasia Not Reportable Hypochromasia Not Reportable Poikilocytosis Not Reportable Anisocytosis Not Reportable Microcytosis Not Reportable Macrocytosis Not Reportable Spherocytes Not Reportable Pappenheimer Bodies Not Reportable Sickle Cells Not Reportable Target Cells Not Reportable Tear Drop Cells Not Reportable Ovalocytes Not Reportable Helmet Cells Not Reportable [place] Bodies Not Reportable [place] Rings Not Reportable Hartman Cells Not Reportable Bite Cells Not Reportable Crenated Cell Not Reportable Elliptocytes Not Reportable Acanthocytes (Spur) Not Reportable Rouleaux Not Reportable Hemoglobin C Crystals Not Reportable Schistocytes Not Reportable Malaria parasites Not Reportable Hilton Bodies Not Reportable Hem Pathologist Commnt No Sodium 131 L Potassium 3.8 D Chloride 94.7 L Carbon Dioxide 26 Anion Gap 14 BUN 10 Creatinine 0.6 Estimated GFR > 60 BUN/Creatinine Ratio 17 Glucose 88 Calcium 8.8 Total Bilirubin 0.60 AST 22 ALT 23 Alkaline Phosphatase 60 Total Protein 6.6 Albumin 3.9 Albumin/Globulin Ratio 1.4 SARS-CoV-2 (PCR) Negative
[2022-03-01] MEDS: HEPARIN 5,000 UNIT/1 ML VIAL SUB-Q SCH (00:37)
[2022-03-01] MEDS: ONDANSETRON 4 MG/2 ML INJ IV PRN (09:03)
--- NOTE | 2022-03-01 09:07 | Progress Note ---
Assessment and Plan - Patient Problems (1) Electrolyte imbalance Current Visit: Yes Status: Resolved (2) Hyperemesis gravidarum Current Visit: Yes Status: Resolved Subjective - Subjective Date of service: 03/01/22 Principal diagnosis: Hyperemesis gravidarum Interval history: at 7+ weeks with n/v and electrolyte imbalance. 02/28/22 Electrolytes normal. Doing better. Says cost of Diclegis unaffordable for home meds. Patient reports: no new complaints, no loss of fluid, no vaginal bleeding, no contractions (Feeling better. Not able to keep food down still.) Objective - Vital Signs Vital Signs: Vital Signs - 12hr 03/01/22 03/01/22 03/01/22 00:15 04:00 08:24 Temperature 97.8 F 98.6 F 97.9 F Pulse Rate 68 77 72 Respiratory 18 16 20 Rate Blood Pressure 112/64 106/67 Blood Pressure 105/78 [Left] O2 Sat by Pulse 100 100 Oximetry - Exam Lungs: Normal air movement Extremities: normal Deep Tendon Reflex Grade: Normal +2 - Labs Labs: Abnormal Labs 02/27/22 02/27/22 02/27/22 08:34 08:34 08:34 WBC 25.8 H RBC 5.54 H Hgb 15.0 H Hct 43.2 H MCV 78 L MCH 27 L MCHC 35 H Seg Neuts % (Manual) 89.0 H Lymphocytes % (Manual) 7.0 L Seg Neutrophils # Man 23.0 H Monocytes # (Manual) 1.0 H Sodium 131 L Potassium 2.6 L* D Chloride 81.7 L BUN 28 H Glucose 114 H Lactic Acid Lipase 8 L HCG, Quant 89581 H Urine HCG, Qual 02/27/22 02/27/22 02/27/22 10:52 12:10 12:30 WBC RBC Hgb Hct MCV MCH MCHC Seg Neuts % (Manual) Lymphocytes % (Manual) Seg Neutrophils # Man Monocytes # (Manual) Sodium Potassium Chloride BUN Glucose Lactic Acid 2.50 H* 2.10 H* Lipase HCG, Quant Urine HCG, Qual Positive A 02/27/22 02/28/22 02/28/22 13:37 04:22 04:22 WBC 22.0 H RBC Hgb Hct MCV MCH 27 L MCHC 35 H Seg Neuts % (Manual) 75.0 H Lymphocytes % (Manual) Seg Neutrophils # Man 16.5 H Monocytes # (Manual) 0.9 H Sodium 131 L Potassium Chloride 94.7 L BUN Glucose Lactic Acid 2.20 H* Lipase HCG, Quant Urine HCG, Qual Laboratory Results - last 24 hr 02/28/22 12:37 SARS-CoV-2 (PCR) Negative
--- NOTE | 2022-03-01 09:12 | Discharge Summary ---
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 May get B6 otc. Must take her vitamins.) Instructions: other (For telephonic nurse case manager to weigh in on cost of meds.) Additional instructions: [] Smoking cessation referral if applicable(refer to patient education folder for contact #) [] Refer to [facility]'s [facility] Booklet Call your doctor immediately for: * Fever > 100.5 * Heavy vaginal bleeding ( >1 pad per hour) * Severe persistent headache * Shortness of breath * Reddened, hot, painful area to leg or breast * Drainage or odor from incision. * Keep incision clean and dry at all times and follow doctor's instructions regarding bathing/showering - Follow up plan Follow up: JOSE MORE MD [Primary Care Provider] - 3-5 Days
[2022-03-01 22:11] VITALS: BP 109/68
== END 2022-03-01 21:40 | disposition home or self-care (01) | DRG 781 ==
LOC: ED 07:43 → OB 19:24 → UNDODISIN 23:30
PROVIDERS: ADMIT Obstetrics & Gynecology; ATTEND Obstetrics & Gynecology
DX: O21.1 Hyperemesis gravidarum with metabolic disturbance (principal); F17.200 Nicotine dependence, unspecified, uncomplicated; Z3A.01 Less than 8 weeks gestation of pregnancy; O99.111 Other diseases of the blood and blood-forming organs and certain disorders involving the immune mechanism complicating pregnancy, first trimester; D72.829 Elevated white blood cell count, unspecified; Z20.822 Contact with and (suspected) exposure to COVID-19
CPT/HCPCS: 36415; 76801; 80048; 80053; 81001; 81025; 82140; 82150; 83690; 84702; 85007; 85025; G0378; J3490; J1644; J2270; J2405; J3411; J3480; J7030; J7042; U0003